=== PATIENT | male | born 1960 | race Caucasian/White ===

== ENCOUNTER 2019-12-25 08:21 | Emergency (ER) | payer OTHER ==
--- NOTE | 2019-12-25 09:12 | ER ---
Nurse's Notes [facility] Name: Orlin Jacques Age: 59 yrs Sex: Male : 1960 Arrival Date: 12/25/2019 Time: 08:26 Bed 19 Private MD: Vashti Jacinto H Diagnosis: Pain in left knee;Local infection of the skin and subcutaneous tissue, unspecified Presentation: 12/25 08:38 Presenting complaint: Patient states: fell on left knee Monday, now has redness and iw swelling to knee, pain when he bends. Transition of care: patient was not received from another setting of care. Onset of symptoms was December 22, 2019. Risk Assessment: Do you want to hurt yourself or someone else? Patient reports no desire to harm self or others. Initial Sepsis Screen: Does the patient meet any 2 criteria? No. Patient's initial sepsis screen is negative. Does the patient have a suspected source of infection? No. Patient's initial sepsis screen is negative. Care prior to arrival: None. 08:38 Method Of Arrival: Ambulatory iw 08:38 Acuity: CLARK 4 iw Historical: - Allergies: 08:41 PENICILLINS; iw - Home Meds: 08:41 Nexium Oral once daily [Active]; iw - PMHx: 08:41 Ulcers; iw - PSHx: 08:41 Tonsillectomy; iw - Immunization history:: Adult Immunizations not up to date. - Coronavirus screen:: The patient has NOT traveled to [place] in the past 14 days. Proceed with normal triage process as indicated. - Social history:: Smoking status: Patient denies any tobacco usage or history of. - Ebola Screening: : Patient negative for fever greater than or equal to 101.5 degrees Fahrenheit, and additional compatible Ebola Virus Disease symptoms Patient denies exposure to infectious person Patient denies travel to an Ebola-affected area in the 21 days before illness onset No symptoms or risks identified at this time. Screenin:55 Abuse screen: Denies threats or abuse. Denies injuries from another. Nutritional jl7 screening: No deficits noted. Tuberculosis screening: No symptoms or risk factors identified. Fall Risk None identified. Assessment: 08:55 General: Appears in no apparent distress. uncomfortable, Behavior is calm, cooperative, jl7 appropriate for age. Pain: Complains of pain in left knee Pain currently is 0 out of 10 on a pain scale. at worst was 9 out of 10 on a pain scale. Neuro: Level of Consciousness is awake, alert, obeys commands, Oriented to person, place, time, situation. Cardiovascular: Patient's skin is warm and dry. Respiratory: Airway is patent Respiratory effort is even, unlabored, Respiratory pattern is regular, symmetrical. Derm: Skin is pink, warm \T\ dry. Vital Signs: 08:41 BP 169 / 97; Pulse 77; Resp 16; Temp 97.7; Pulse Ox 99% on R/A; Weight 70.31 kg; Height iw 5 ft. 8 in. (172.72 cm); Pain 9/10; 08:41 Body Mass Index 23.57 (70.31 kg, 172.72 cm) iw ED Course: 08:26 Patient arrived in ED. mr 08:26 Vashti Jacinto DO is Private Physician. mr 08:28 Juju Maza FNP-C is [facility]. kb 08:28 Omero Cool MD is Attending Physician. kb 08:38 Dionisio Bush, JENNY is Primary Nurse. jl7 08:39 Triage completed. iw 08:41 Arm band placed on. iw 08:55 Patient has correct armband on for positive identification. Bed in low position. Call jl7 light in reach. Side rails up X 1. Pulse ox on. NIBP on. 09:23 No provider procedures requiring assistance completed. Patient did not have IV access jl7 during this emergency room visit. 09:44 Knee Left 3 View XRAY In Process Unspecified. EDMS Administered Medications: No medications were administered Outcome: 09:11 Discharge ordered by . kb 09:23 Discharged to home ambulatory. jl7 09:23 Condition: stable 09:23 Discharge instructions given to patient, Instructed on discharge instructions, follow up and referral plans. medication usage, Demonstrated understanding of instructions, follow-up care, medications, Prescriptions given X 1. 09:25 Patient left the ED. jl7 Signatures: Dispatcher [employer] EDMS Juju Maza FNP-C FNP-Ckb Rivera, Mary Allison Andre RN RN iw Dionisio Bush RN RN jl7
--- NOTE | 2019-12-25 09:13 | EDPHYS ---
Physician Documentation [facility] Name: Orlin Jacques Age: 59 yrs Sex: Male : 1960 Arrival Date: 12/25/2019 Time: 08:26 Bed 19 Private MD: Vashti Jacinto H ED Physician Omero Cool HPI: 12/25 08:57 This 59 yrs old Male presents to ER via Ambulatory with complaints of Knee kb Pain. 08:57 The patient presents with pain, that is acute, swelling. The complaints affect the left kb knee. Context: The problem was sustained cruise ship, resulted from the patient falling, the patient can fully bear weight, the patient is able to ambulate. Onset: The symptoms/episode began/occurred 5 day(s) ago. Modifying factors: The symptoms are alleviated by nothing. the symptoms are aggravated by nothing. Associated signs and symptoms: Pertinent positives: swelling. Treatment prior to arrival includes: no previous treatment. Severity of symptoms: At their worst the symptoms were moderate, in the emergency department the symptoms are unchanged. The patient has not experienced similar symptoms in the past. The patient has not recently seen a physician. Pt reports he fell while on a cruise ship on Monday, landing on left knee. Reports it didn't bother him until yesterday. No complains of swelling, redness and pain to left knee. Full ROM. Historical: - Allergies: 08:41 PENICILLINS; iw - Home Meds: 08:41 Nexium Oral once daily [Active]; iw - PMHx: 08:41 Ulcers; iw - PSHx: 08:41 Tonsillectomy; iw - Immunization history:: Adult Immunizations not up to date. - Coronavirus screen:: The patient has NOT traveled to [place] in the past 14 days. Proceed with normal triage process as indicated. - Social history:: Smoking status: Patient denies any tobacco usage or history of. - Ebola Screening: : Patient negative for fever greater than or equal to 101.5 degrees Fahrenheit, and additional compatible Ebola Virus Disease symptoms Patient denies exposure to infectious person Patient denies travel to an Ebola-affected area in the 21 days before illness onset No symptoms or risks identified at this time. ROS: 08:56 Constitutional: Negative for fever, chills, and weight loss, Cardiovascular: Negative kb for chest pain, palpitations, and edema, Respiratory: Negative for shortness of breath, cough, wheezing, and pleuritic chest pain, Abdomen/GI: Negative for abdominal pain, nausea, vomiting, diarrhea, and constipation, Back: Negative for injury and pain, Skin: Negative for injury, rash, and discoloration, Neuro: Negative for headache, weakness, numbness, tingling, and seizure. 08:56 MS/extremity: Positive for erythema, pain, swelling, of the left knee. Exam: 08:56 Constitutional: This is a well developed, well nourished patient who is awake, alert, kb and in no acute distress. Head/Face: Normocephalic, atraumatic. Neck: Trachea midline, no thyromegaly or masses palpated, and no cervical lymphadenopathy. Supple, full range of motion without nuchal rigidity, or vertebral point tenderness. No Meningismus. Chest/axilla: Normal chest wall appearance and motion. Nontender with no deformity. No lesions are appreciated. Cardiovascular: Regular rate and rhythm with a normal S1 and S2. No gallops, murmurs, or rubs. Normal PMI, no JVD. No pulse deficits. Respiratory: Lungs have equal breath sounds bilaterally, clear to auscultation and percussion. No rales, rhonchi or wheezes noted. No increased work of breathing, no retractions or nasal flaring. Abdomen/GI: Soft, non-tender, with normal bowel sounds. No distension or tympany. No guarding or rebound. No evidence of tenderness throughout. Skin: Warm, dry with normal turgor. Normal color with no rashes, no lesions, and no evidence of cellulitis. Neuro: Awake and alert, GCS 15, oriented to person, place, time, and situation. Cranial nerves II-XII grossly intact. Motor strength 5/5 in all extremities. Sensory grossly intact. Cerebellar exam normal. Normal gait. 08:56 Musculoskeletal/extremity: Extremities: grossly normal except: noted in the left knee: erythema, pain, swelling, ROM: intact in all extremities, Circulation is intact in all extremities. Sensation intact. Weight bearing: able to fully bear weight, without difficulty. Vital Signs: 08:41 BP 169 / 97; Pulse 77; Resp 16; Temp 97.7; Pulse Ox 99% on R/A; Weight 70.31 kg; Height iw 5 ft. 8 in. (172.72 cm); Pain 9/10; 08:41 Body Mass Index 23.57 (70.31 kg, 172.72 cm) iw MDM: 08:33 Patient medically screened. kb 08:55 Differential diagnosis: contusion, fracture, sprain, strain. Data reviewed: vital kb signs, nurses notes, radiologic studies. Data interpreted: Pulse oximetry: on room air is 99 %. Interpretation: normal. Counseling: I had a detailed discussion with the patient and/or guardian regarding: the historical points, exam findings, and any diagnostic results supporting the discharge/admit diagnosis, radiology results, the need for outpatient follow up, a family practitioner, to return to the emergency department if symptoms worsen or persist or if there are any questions or concerns that arise at home. 12/25 08:36 Order name: Knee Left 3 View XRAY kb Administered Medications: No medications were administered Disposition: 09:27 Co-signature as Attending Physician, Omero Cool MD. rn Disposition: 12/25/19 09:11 Discharged to Home. Impression: Pain in left knee, Local infection of the skin and subcutaneous tissue, unspecified. - Condition is Stable. - Discharge Instructions: Cellulitis, Adult, Khln-wi-[id number], Knee Pain, [id number]. - Prescriptions for Bactrim DS 800- 160 mg Oral Tablet - take 1 tablet by ORAL route every 12 hours for 10 days; 20 tablet. - Medication Reconciliation Form, Thank You Letter, Antibiotic Education, Prescription Opioid Use form. - Follow up: Emergency Department; When: As needed; Reason: Worsening of condition. Follow up: Private Physician; When: 2 - 3 days; Reason: Recheck today's complaints, Continuance of care, Re-evaluation by your physician. Signatures: Dispatcher [employer] Juju Corbin, DELMY-C RESTAURANT DELIVERY DRIVER-Ckb Allison Andre RN RN iw Nieto, Roman, MD MD rn Leal, Jahala, RN RN jl7 Corrections: (The following items were deleted from the chart) 09:25 09:11 12/25/2019 09:11 Discharged to Home. Impression: Pain in left knee; Local jl7 infection of the skin and subcutaneous tissue, unspecified. Condition is Stable. Forms are Medication Reconciliation Form, Thank You Letter, Antibiotic Education, Prescription Opioid Use. Follow up: Emergency Department; When: As needed; Reason: Worsening of condition. Follow up: Private Physician; When: 2 - 3 days; Reason: Recheck today's complaints, Continuance of care, Re-evaluation by your physician. kb
--- NOTE | 2019-12-25 09:30 | RAD REPORT ---
EXAM DESCRIPTION: RAD - Knee Left 3 View - 12/25/2019 9:03 am CLINICAL HISTORY: PAIN COMPARISON: No comparisons FINDINGS: Soft tissue swelling is seen anterior to the patellar and patellar tendon. A small suprapa tellar joint effusion is noted. No acute fractures demonstrated.
[2019-12-25 10:50] VITALS: BP 169/97; TEMP 97.7; O2SAT 99
== END 2019-12-25 09:25 | disposition home or self-care (01) ==
LOC: ER 08:21
DX: M25.562 Pain in left knee (principal); L08.9 Local infection of the skin and subcutaneous tissue, unspecified; W18.30XA Fall on same level, unspecified, initial encounter; Y93.9 Activity, unspecified; Y92.9 Unspecified place or not applicable; Z88.0 Allergy status to penicillin
CPT/HCPCS: 99283

== ENCOUNTER 2024-03-13 06:17 | Day surgery (SDC) | payer OTHER ==
[2024-03-11 16:11] LABS: Absolute Basophils 0.1 K/uL (0-0.5); Absolute Eosinophils 0.1 K/uL (0-0.5); Absolute Lymphocytes (CBC) 1.7 K/uL (0.7-4.9); Absolute Monocytes 0.3 K/uL (0.1-1.3); Absolute Neutrophil 3.3 K/uL (1.8-8.0); Basophils % 0.9 % (0-1.3); Eosinophils % 2.6 % (0-4.4); Hematocrit 38.6 % (39.6-49.0); Hemoglobin 13.5 g/dL (13.6-17.9); Lymphocytes % 30.5 % (15.3-44.8); MCH 32.3 pg (27.0-35.0); MCV 92.2 fL (80-100); MPV 8.7 fL (7.6-11.3); Monocytes % 6.3 % (3.3-12.3); Neutrophils % 59.7 % (41.7-73.7); Nucleated Red Blood Cells % 0.2 % (0-0); Platelets 305 thou/uL (152-406); RBC Red Blood Cell Count 4.18 M/uL (4.33-5.43); Red Cell Distribution Width 12.6 % (12.1-15.2)
--- NOTE | 2024-03-11 16:30 | RAD REPORT ---
EXAM DESCRIPTION: RAD - Chest Pa And Lat (2 Views) - 03/11/2024 4:21 pm CLINICAL HISTORY: Pre op pending cholecystectomy Chest pain. COMPARISON: No comparisons FINDINGS: The lungs are clear. The heart is normal in size. No displaced fractures. IMPRESSION: No acute or concerning finding suspected.
[2024-03-11 16:31] LABS: Albumin 4.3 g/dL (3.4-5.0); Albumin/Globulin Ratio 1.2 (1.1-1.8); Anion Gap 3.7 mEq/L (5.0-15.0); Bilirubin Direct 0.1 mg/dL (0-0.2); Bilirubin Indirect, Calculated 0.3 mg/dL (0.2-0.8); Bilirubin Total 0.4 mg/dL (0.2-1.0); Globulin 3.5 g/dL (2.3-3.5); Potassium 3.7 mEq/L (3.5-5.1); Protein, Total 7.8 g/dL (6.4-8.2)
--- NOTE | 2024-03-12 14:01 | EKG ---
Test Date: 2024-03-11 Test Time: 15:57:55 Digital Hardware Design Engineer: LUCITA MEASUREMENT RESULTS: Intervals: Rate: 64 GA: 150 QRSD: 98 QT: 370 QTc: 381 [place]: P: 56 GA: 150 QRS: 80 T: 83 INTERPRETIVE STATEMENTS: Normal sinus rhythm Normal ECG Compared to ECG 04/27/1997 12:44:00 Sinus arrhythmia no longer present Electronically Signed On 03-12-24 13:58:33 CDT by Ash Mcmahan
[2024-03-13] MEDS: Ringers Lactate 1,000 ML IV ONE (06:45)
[2024-03-13] MEDS ORDERED: ROCURONIUM 50 MG/5 ML VIAL IV ONE (07:14)
[2024-03-13] MEDS ORDERED: ONDANSETRON 4 MG/2 ML VIAL ONE (07:14)
[2024-03-13] MEDS ORDERED: LIDOCAINE 2% MPF 5 ML VIAL ONE (07:14)
[2024-03-13] MEDS ORDERED: propofoL 200 MG/20 ML VIAL IV ONE (07:14)
[2024-03-13] MEDS ORDERED: MIDAZOLAM HCL 2 MG/2 ML INJ ONE (07:14)
[2024-03-13] MEDS ORDERED: FENTANYL CITR 100 MCG/2 ML ONE (07:14)
[2024-03-13] MEDS ORDERED: KETOROLAC 30 MG/ML INJ ONE (07:14)
[2024-03-13] MEDS ORDERED: dexAMETHasone 10 MG/ML VIAL ONE (07:14)
[2024-03-13] MEDS: CEFOXITIN SODIUM 1 GM/VIAL ONE (07:39)
--- NOTE | 2024-03-13 08:20 | P.BOP ---
Preoperative diagnosis: acute cholecystitis, symptomatic cholelithiasis Postoperative diagnosis: same Primary procedure: Laparoscopic cholecystectomy Estimated blood loss: <10cc Specimen: gb Findings: as above Anesthesia: General Complications: None Transferred to: Recovery Room Condition: Good
[2024-03-13 08:31] VITALS: O2SAT 100
[2024-03-13] MEDS: HYDROMORPHONE HCL 1 MG/ML INJ ONE (08:38)
[2024-03-13] MEDS: CODEINE 30MG/APAP 300MG TAB ONE (09:15)
[2024-03-13 09:30] VITALS: BP 113/62; TEMP 97.3
--- NOTE | 2024-03-13 12:05 | OP ---
Date of Procedure: 03/13/2024 Surgeon: Alfa London MD Preoperative Diagnoses: Acute cholecystitis, symptomatic cholelithiasis. Postoperative Diagnoses: Acute cholecystitis, symptomatic cholelithiasis. Procedure: Laparoscopic cholecystectomy. Estimated Blood Loss: Less than 10 mL. Anesthesia: General plus local. Complications: None. Indications: This is the case of a 63-year-old patient, comes to us with above diagnosis, fully expl ained the benefits, alternatives, and risks of laparoscopic possible open cholecystectomy, which incl ude, but not limited to infection, bleeding, damage to adjacent structures, anesthesia complication, choledocholithiasis, bile leak, pancreatitis, RI, and even . He also understands this may not r elieve any symptoms. He might need more than one surgical intervention. He understood and signed a consent. The patient was brought to the operating room and placed in supine position. Anesthesia wa s given without complication. Abdominal area was prepped and draped in a sterile fashion. Marcaine 0.5% was injected for local anesthetic followed by sharp incision of the skin in the infraumbilical r egion. Incision was carried down to fascia, which was opened under direct vision. Peritoneum was en countered and opened under direct vision. Vicryl #1 was placed inside the fascia. Daren trocar was carefully introduced. No bleeding was obtained. I placed 3 more trocars, 5 mm each one of them in the right upper quadrant under direct visualization. This allowed me to put a grasper in the fundus of the gallbladder, another grasper in the infundibulum, retracting the gallbladder in the inferolate ral fashion exposing the triangle of Calot, obtaining critical view. Cystic duct and cystic artery w ere clearly isolated, freed circumferentially, and a connection between those and the gallbladder wer e clearly identified. I proceeded to ligate those by using at least 3 clips proximal, 1 clip distal, ligation in middle. Same was done with cystic artery. No bile leak. No bleeding. The gallbladder was removed from liver using Bovie cauterizer and removed from abdominal cavity using EndoCatch thro ugh the umbilical incision. The area was inspected once again. No bile leak. No bleeding. At that moment, I proceeded to remove the trocars under direct vision. Deflated pneumoperitoneum. Closed t he fascia with #1 Vicryl, irrigated subcutaneous tissue, closed that with 3-0 chromic and skin in a s ubcuticular fashion with 3-0 chromic and Steri-Strips on top. Sponge count and instrument counts cor rect. The patient tolerated the procedure well. The patient was sent to recovery in stable conditio nPete MARK/RUKHSANA Voice ID: [id number] Report ID: [id number]
--- NOTE | 2024-03-13 12:08 | DS ---
Diagnoses: Acute cholecystitis, symptomatic cholelithiasis. Procedure: Laparoscopic cholecystectomy. Disposition: Home. Condition: Stable. Activity: As tolerated. No heavy lifting. Follow up in my office in 1 week. Call for appointment at [phone]. Keep area dry for 48 hours, then may shower. Keep Steri-Strips intact. DEEDEE/RUKHSANA Voice ID: [id number] Report ID: [id number]
== END 2024-03-13 09:56 | disposition home or self-care (01) ==
LOC: OR 06:17
PROVIDERS: ATTEND Surgery
PROC: 0FT44ZZ Resection of Gallbladder, Percutaneous Endoscopic Approach (ICD-10-PCS; principal; 2024-03-13 07:30)
DX: K80.10 Calculus of gallbladder with chronic cholecystitis without obstruction (principal); E78.00 Pure hypercholesterolemia, unspecified
CPT/HCPCS: 93005; 85025; 80048; 36415; 80076; 88304; 83690; 71046; 47562; J2704; J2001; J2250; J3010; J1100; J1170; J0694; J2405; J7120